=== PATIENT | female | born 1980 ===

== ENCOUNTER 2016-11-18 01:10 | Emergency (ER) | payer MEDICAID ==
[2016-11-18 01:25] VITALS: RESP 20; TEMP 98.1
--- NOTE | 2016-11-18 02:06 | C.PDOC ---
History Of Present Illness 36 year old female presents to the ED with complaints of dental pain x2 days. Patient states she had root canal done two days ago and was given ibuprofen that was providing relief but has run out. She notes she is currently taking antibiotics and was going to return to the dental office yesterday but did not therefore prompting visit to ED. (+) h/o poor dentition. Patient denies any fever, facial swelling, SOB, jow pain, chest pain or difficulty swallowing. Time Seen by Provider: 11/18/16 01:28 Chief Complaint (Nursing): Dental Pain History Per: Patient History/Exam Limitations: no limitations Onset/Duration Of Symptoms: Days (since yesterday) Current Symptoms Are (Timing): Still Present Quality: Positive for: "Pain" Recent travel outside of the [place]: No Past Medical History Reviewed: Historical Data, Nursing Documentation, Vital Signs Vital Signs: Last Vital Signs Temp 98.1 F 11/18/16 01:18 Pulse 92 H 11/18/16 02:15 Resp 20 11/18/16 02:15 BP 118/68 11/18/16 02:15 Pulse Ox 97 11/18/16 03:47 - Medical History PMH: Anxiety, Arthritis, Asthma, Bipolar Disorder, Depression, HTN, Schizophrenia Surgical History: Back Surgery, Cholecystectomy Family History: States: Unknown Family Hx - Social History Hx Alcohol Use: No Hx Substance Use: No - Immunization History Hx Tetanus Toxoid Vaccination: No Hx Influenza Vaccination: No Hx Pneumococcal Vaccination: No Review Of Systems Constitutional: Negative for: Fever, Chills Eyes: Negative for: Vision Change ENT: Positive for: Other (dental pain). Negative for: Mouth Swelling, Throat Swelling Cardiovascular: Negative for: Chest Pain, Palpitations Respiratory: Negative for: Cough, Shortness of Breath Gastrointestinal: Negative for: Vomiting Neurological: Negative for: Headache, Dizziness Physical Exam - Physical Exam Appears: Non-toxic, No Acute Distress Skin: Warm, Dry Head: Atraumatic, Normacephalic Eye(s): bilateral: Normal Inspection, PERRL, EOMI Nose: Normal Oral Mucosa: Moist Tongue: Normal Appearing, No Swelling Lips: Normal Appearing, No Swelling Teeth: Caries (of the right maxillary molar ), Tender To Palpation (of the right maxillary molar ), Other (poor dentition with removable partial denture) Gingiva: Normal Appearing, No Swelling, No Tender Throat: Normal, No Erythema, No Exudate Neck: Normal ROM, Supple Chest: Symmetrical, No Deformity Cardiovascular: Rhythm Regular Respiratory: Normal Breath Sounds, No Rales, No Rhonchi, No Wheezing Neurological/Psych: Oriented x3, Normal Speech ED Course And Treatment O2 Sat by Pulse Oximetry: 97 (room air ) Progress Note: Toradol ordered. On re-evaluation, Patient is resting comfortably, and is in no acute distress. Swallowign without difficulty. Patient was instructed to follow up with dentist in 1-2 days. Disposition - Disposition Disposition: HOME/ ROUTINE Disposition Time: 02:05 Condition: STABLE Additional Instructions: follow up with dentist in 1-2 days. Return to ER if symptoms persist or worsen. Prescriptions: Ibuprofen [Motrin Tab] 800 mg PO TID PRN #20 tab PRN Reason: Pain, Mild (1-3) Instructions: Toothache (ED) - Clinical Impression Clinical Impression: Toothache - Scribe Statement The provider has reviewed the documentation as recorded by the Scribpb [place] All medical record entries made by the Keenanibpb were at my direction and personally dictated by me. I have reviewed the chart and agree that the record accurately reflects my personal performance of the history, physical exam, medical decision making, and the department course for this patient. I have also personally directed, reviewed, and agree with the discharge instructions and disposition.
[2016-11-18 02:35] VITALS: BP 118/68; PULSE 92
[2016-11-18 03:39] VITALS: O2SAT 97
== END 2016-11-18 02:15 | disposition home or self-care (01) ==
LOC: C.ER 01:10
DX: K08.89 Other specified disorders of teeth and supporting structures (principal)
CPT/HCPCS: 96372; 99283; J1885

== ENCOUNTER 2016-11-19 18:03 | Emergency (ER) | payer MEDICAID | END 2016-11-19 20:10 | disposition home or self-care (01) | LOC: C.ER 18:03 | DX: K02.9 Dental caries, unspecified (principal) | CPT/HCPCS: 96372; 99283; J1885 ==

== ENCOUNTER 2016-11-21 03:50 | Emergency (ER) | payer MEDICAID ==
[2016-11-21 04:18] VITALS: BP 121/85; PULSE 85; RESP 18; TEMP 98; O2SAT 97
--- NOTE | 2016-11-21 06:34 | C.PDOC ---
History Of Present Illness Pt with chronic h/o of herniated disc, previously on pain management in [place] presents to ER with c/o of exacerbation of her chronic back pain. Pt is requesting pain meds. Pt denies recent injury, extremity weakness, numbness, incontinence. Pt has scheduled appointment today for pain management Time Seen by Provider: 11/21/16 05:44 Chief Complaint (Nursing): Back Pain History Per: Patient History/Exam Limitations: no limitations Current Symptoms Are (Timing): Still Present Quality Of Discomfort: Aching Severity: Moderate Pain Scale Rating Of: 7 Previous Symptoms: Chronic Pain Associated Symptoms: None. denies: Incontinence, New Weakness, New Numbness Exacerbating Factor(s): Turning, Movement Recent travel outside of the [place]: No Past Medical History Vital Signs: Last Vital Signs Temp 98 F 11/21/16 04:13 Pulse 85 11/21/16 04:13 Resp 18 11/21/16 04:13 BP 121/85 11/21/16 04:13 Pulse Ox 97 11/21/16 06:37 - Medical History PMH: Anxiety, Arthritis, Asthma, Back Problems, Bipolar Disorder, Depression, HTN, Schizophrenia Surgical History: Back Surgery, Cholecystectomy Family History: States: Unknown Family Hx - Social History Hx Alcohol Use: No Hx Substance Use: No - Immunization History Hx Tetanus Toxoid Vaccination: No Hx Influenza Vaccination: No Hx Pneumococcal Vaccination: No Review Of Systems Constitutional: Negative for: Fever, Chills Gastrointestinal: Negative for: Abdominal Pain Genitourinary: Negative for: Dysuria, Incontinence, Hematuria Musculoskeletal: Positive for: Back Pain Neurological: Negative for: Weakness, Numbness Physical Exam - Physical Exam Appears: Well, Non-toxic Skin: Normal Color Head: Atraumatic Eye(s): bilateral: Normal Inspection, PERRL, EOMI Oral Mucosa: Moist Neck: Normal, No Midline Cervical Tenderness, No Paracervical Tenderness Chest: Symmetrical, No Tenderness Cardiovascular: Rhythm Regular Respiratory: Normal Breath Sounds Gastrointestinal/Abdominal: Normal Exam, Soft, No Tenderness Back: Normal Inspection, Vertebral Tenderness (lumbar), Paraspinal Tenderness ( lumbar), No Straight Leg Raising Extremity: Normal ROM Pulses: Left Dorsalis Pedis: Normal, Right Dorsalis Pedis: Normal Neurological/Psych: Oriented x3, Normal Motor, Normal Sensation Gait: Steady ED Course And Treatment O2 Sat by Pulse Oximetry: 97 Pulse Ox Interpretation: Normal Progress Note: Toradol IM and flexeril PO given. Pt has a scheduled appt at 1 pm with PCP or pain management and was instucted and advised to keep. Pt understands all return precautions Disposition - Disposition Referrals: Non [facility] Provider, [Primary Care Provider] - Disposition: HOME/ ROUTINE Disposition Time: 06:35 Condition: STABLE Additional Instructions: Please follow up with PMD / Sigue en clinica Regresa si peor Prescriptions: Cyclobenzaprine [Cyclobenzaprine HCl] 10 mg PO HS #7 tab Naproxen [Naprosyn] 1 tab PO BID PRN #14 tab PRN Reason: Pain Instructions: Chronic Back Pain (ED) Print Language: ECUADOREAN - Clinical Impression Clinical Impression: Chronic back pain
== END 2016-11-21 07:00 | disposition home or self-care (01) ==
LOC: SUPCPDRO 03:50 → C.ER 03:50
DX: G89.29 Other chronic pain (principal); M54.9 Dorsalgia, unspecified
CPT/HCPCS: 96372; 99283; J1885

== ENCOUNTER 2016-12-11 08:46 | Emergency (ER) | payer MEDICAID ==
[2016-12-11 08:56] VITALS: TEMP 98.8
--- NOTE | 2016-12-11 09:07 | C.PDOC ---
History Of Present Illness 36-year-old female, PMHx includes Anxiety, Arthritis, Asthma, Back Problems, Bipolar Disorder, Depression, Hypertension and Schizophrenia, presents to the emergency department with complaints of shoulder pain. Three days ago, patient had an episode of mid-sternal chest pain, that radiated to left shoulder. States chest pain resolved, but shoulder pain continues, and is constant. Pain is worse with movement. Patient notes limited relief with Motrin 800mg. Patient denies trauma, heavy lifting, palpitations, numbness/weakness, shortness of breath, palpitations or any other associated symptoms. Patients secondary complaint is anxiety, states she ran out of her medication (Xanax 2mg TID). No other complaints at this time. Time Seen by Provider: 12/11/16 09:04 Chief Complaint (Nursing): Chest Pain History Per: Patient History/Exam Limitations: no limitations Onset/Duration Of Symptoms: Days (3) Current Symptoms Are (Timing): Still Present Severity: Moderate Past Medical History Reviewed: Historical Data, Nursing Documentation, Vital Signs Vital Signs: Last Vital Signs Temp 98.8 F 12/11/16 08:50 Pulse 96 H 12/11/16 10:15 Resp 15 12/11/16 10:15 BP 142/93 H 12/11/16 10:15 Pulse Ox 100 12/11/16 10:15 - Medical History PMH: Anxiety, Arthritis, Asthma, Back Problems, Bipolar Disorder, Depression, HTN, Schizophrenia Surgical History: Back Surgery, Cholecystectomy Family History: States: No Known Family Hx - Social History Hx Alcohol Use: No Hx Substance Use: No - Immunization History Hx Tetanus Toxoid Vaccination: No Hx Influenza Vaccination: No Hx Pneumococcal Vaccination: No Review Of Systems Except As Marked, All Systems Reviewed And Found Negative. Constitutional: Negative for: Fever, Weakness Cardiovascular: Positive for: Chest Pain (Now resolved). Negative for: Palpitations Respiratory: Negative for: Shortness of Breath Gastrointestinal: Negative for: Nausea, Vomiting Musculoskeletal: Positive for: Shoulder Pain (Left) Neurological: Negative for: Weakness, Numbness, Headache, Dizziness Psych: Positive for: Anxiety Physical Exam - Physical Exam Appears: Non-toxic, No Acute Distress Skin: Warm, Dry, No Rash Head: Atraumatic, Normacephalic Eye(s): bilateral: Normal Inspection, PERRL Nose: Normal Oral Mucosa: Moist Lips: Normal Appearing Neck: Normal ROM Cardiovascular: Rhythm Regular, No Murmur Respiratory: Normal Breath Sounds, No Accessory Muscle Use Extremity: Tenderness, Capillary Refill (<2 seconds), No Deformity, No Swelling , Other (Left shoulder: pain reproducible with ADduction and flexion) Pulses: Left Radial: Normal, Right Radial: Normal Neurological/Psych: Oriented x3, Normal Speech (No focal deficit) ED Course And Treatment - Laboratory Results Result Diagrams: 12/11/16 09:56 12/11/16 09:56 ECG: Interpreted By Me ECG Rhythm: Sinus Rhythm ECG Interpretation: Normal Rate From EC O2 Sat by Pulse Oximetry: 97 Pulse Ox Interpretation: Normal - Radiology CXR: Interpreted by Me CXR Interpretation: Yes: No Acute Disease Progress - Re-Evaluation Re-evaluation Note: 12/11/16 10:57 FEELS BETTER. - Data Reviewed Data Reviewed: Lab, Diagnostic imaging, EKG, Old records Disposition Counseled Patient/Family Regarding: Studies Performed, Diagnosis, Need For Followup, Rx Given - Disposition Referrals: [facility] [Outside] [facility] [Outside] Disposition: HOME/ ROUTINE Disposition Time: 10:57 Condition: IMPROVED Prescriptions: Cyclobenzaprine [Flexeril] 10 mg PO TID #15 tab Ketorolac Tromethamine [Toradol] 10 mg PO QID #12 tab Lidocaine 5% [Lidoderm] 1 ea TD PRN PRN #10 patch PRN Reason: Pain, Moderate (4-7) Instructions: Shoulder Pain (ED) Print Language: JAPANESE - Clinical Impression Clinical Impression: Shoulder pain, Chest pain, Anxiety - Scribe Statement The provider has reviewed the documentation as recorded by the Scribe (Sri Burgos) All medical record entries made by the Scribe were at my direction and personally dictated by me. I have reviewed the chart and agree that the record accurately reflects my personal performance of the history, physical exam, medical decision making, and the department course for this patient. I have also personally directed, reviewed, and agree with the discharge instructions and disposition.
[2016-12-11] MEDS ORDERED: Lidocaine 5% Patch TD STA (09:28)
[2016-12-11] MEDS ORDERED: Lidocaine 5% Patch TD ONE (09:35)
[2016-12-11 09:54] LABS: SQUAMOUS EPITHIAL 9 /hpf (0-5); URINE BACTERIA RARE (<OCC); URINE BILIRUBIN NEGATIVE (NEGATIVE); URINE BLOOD 2+ (NEGATIVE); URINE CLARITY Hazy (Clear); URINE COLOR Yellow (YELLOW); URINE GLUCOSE (UA) NORMAL (Normal); URINE LEUKOCYTE ESTERASE NEG Leu/uL (Negative); URINE NITRATE NEGATIVE (NEGATIVE); URINE PROTEIN NEGATIVE (NEGATIVE); URINE UROBILINOGEN NORMAL mg/dL (0.2-1.0)
[2016-12-11 09:55] LABS: HCG,QUALITATIVE URINE NEGATIVE (NEGATIVE)
[2016-12-11 10:00] LABS: BASO % 0.7 % (0.0-2.0); EOS # 0.1 K/uL (0.0-0.7); HEMOGLOBIN 11.7 g/dL (11.0-16.0); LYMPH # 1.9 K/uL (1.0-4.3); LYMPH % 27.2 % (20.0-40.0); MEAN CELL VOLUME 75.5 fL (81.0-99.0); MEAN CORPUSCULAR HGB CONC 31.9 g/dL (33.0-37.0); MEAN PLATELET VOLUME 7.9 fL (7.2-11.7); MONO # 0.6 K/uL (0.0-0.8); MONO % 7.8 % (0.0-10.0); NEUT # 4.4 K/uL (1.8-7.0); NEUT % 62.3 % (50.0-75.0); NRBC % 0.1 % (0.0-2.0); RBC 4.86 Mil/uL (3.80-5.20); RED CELL DISTRIBUTION WIDTH 15.8 % (11.5-14.5); WHITE BLOOD COUNT 7.1 K/uL (4.8-10.8)
[2016-12-11 10:10] LABS: GFR AFRICAN-AMERICAN > 60; GFR NON-AFRICAN AMERICAN > 60
[2016-12-11 10:11] LABS: BLOOD UREA NITROGEN 10 mg/dL (7-17)
--- NOTE | 2016-12-11 10:30 | RAD ---
HISTORY: chest pain COMPARISON: No prior. TECHNIQUE: Chest PA and lateral FINDINGS: LUNGS: Poor inspiration with low lung volumes, minor crowded bronchovascular markings and mild bibasilar atelectasis PLEURA: No significant pleural effusion identified. No pneumothorax apparent. CARDIOVASCULAR: Normal. OSSEOUS STRUCTURES: No significant abnormalities. VISUALIZED UPPER ABDOMEN: Normal. OTHER FINDINGS: None. IMPRESSION: Poor inspiration with low lung volumes, minor crowded bronchovascular markings and mild bibasilar atelectasis
[2016-12-11 11:12] VITALS: BP 122/69; PULSE 72; RESP 18; O2SAT 99
== END 2016-12-11 11:21 | disposition home or self-care (01) ==
LOC: C.ER 08:46
DX: M25.512 Pain in left shoulder (principal); F41.9 Anxiety disorder, unspecified; R07.89 Other chest pain
CPT/HCPCS: 71020; 80048; 81001; 84484; 84703; 85025; 96374; 99285; J1885

== ENCOUNTER 2016-12-14 10:18 | Emergency (ER) | payer MEDICAID ==
--- NOTE | 2016-12-14 12:26 | C.PDOC ---
History Of Present Illness 36 year old female with a Hx of arthritis, 3 herniated discs, HTN, bipolar disorder, and schizophrenia who presents to the ER with a complaint back pain. Patient was seen last Monday for a compliant of left shoulder pain; patient was given Rx which she has not been able to fill. Patient was previously seen by LOREE , with whom she had a disagreement with, and requested and doctor instead. Denies recent trauma, recent travel, weakness, or numbness. Time Seen by Provider: 12/14/16 10:49 Chief Complaint (Nursing): Abdominal Pain History Per: Patient History/Exam Limitations: no limitations Onset/Duration Of Symptoms: Days Current Symptoms Are (Timing): Still Present Quality Of Discomfort: Unable To Describe Associated Symptoms: None Exacerbating Factor(s): Movement Recent travel outside of the [place]: No Past Medical History Reviewed: Historical Data, Nursing Documentation, Vital Signs Vital Signs: Last Vital Signs Temp 98.1 F 12/14/16 10:25 Pulse 90 12/14/16 10:25 Resp 18 12/14/16 10:25 BP 112/76 12/14/16 10:25 Pulse Ox 100 12/14/16 13:06 - Medical History PMH: Anxiety, Arthritis, Asthma, Back Problems, Bipolar Disorder, Depression, HTN, Schizophrenia Surgical History: Back Surgery, Cholecystectomy Family History: States: Unknown Family Hx - Social History Hx Alcohol Use: No Hx Substance Use: No - Immunization History Hx Tetanus Toxoid Vaccination: No Hx Influenza Vaccination: No Hx Pneumococcal Vaccination: No Review Of Systems Musculoskeletal: Positive for: Back Pain Neurological: Negative for: Weakness, Numbness Physical Exam - Physical Exam Appears: Non-toxic, Other (Anxious) Skin: Normal Color, Warm, Dry Head: Atraumatic, Normacephalic Oral Mucosa: Moist Gastrointestinal/Abdominal: Soft, No Tenderness, Other (Morbidly obese) Extremity: Normal ROM (x4), No Pedal Edema Neurological/Psych: Oriented x3, Normal Speech, Normal Cognition ED Course And Treatment O2 Sat by Pulse Oximetry: 100 (Room air) Pulse Ox Interpretation: Normal Progress Note: Toradol administered. Lidoderm applied. Medical Decision Making Medical Decision Making: Patient states the pain is better, now c/o abdominal pain. Patient generally dissatisfied. Asking to be discharged with pain medication. Disposition - Disposition Referrals: [facility] at [facility] [Outside] Disposition: HOME/ ROUTINE Disposition Time: 13:29 Condition: STABLE Prescriptions: Cyclobenzaprine [Cyclobenzaprine HCl] 10 mg PO BID #4 tab Instructions: Back Pain (ED) Forms: Gen Discharge Inst [place] Islander - POA Present On Arrival: None - Clinical Impression Clinical Impression: Chronic back pain - Scribe Statement The provider has reviewed the documentation as recorded by the Scribpb [place] All medical record entries made by the Keenanibe were at my direction and personally dictated by me. I have reviewed the chart and agree that the record accurately reflects my personal performance of the history, physical exam, medical decision making, and the department course for this patient. I have also personally directed, reviewed, and agree with the discharge instructions and disposition.
[2016-12-14] MEDS ORDERED: Lidocaine 5% Patch TD STA (12:36)
[2016-12-14] MEDS ORDERED: Lidocaine 5% Patch TD ONE (12:42)
[2016-12-14 13:44] VITALS: BP 127/86; PULSE 81; RESP 17; TEMP 98.3; O2SAT 99
== END 2016-12-14 13:44 | disposition home or self-care (01) ==
LOC: C.ER 10:18
DX: G89.29 Other chronic pain (principal); M54.9 Dorsalgia, unspecified
CPT/HCPCS: 96372; 99285; J1885

== ENCOUNTER 2017-06-10 15:51 | Emergency (ER) | payer MEDICAID ==
[2017-06-10 16:16] VITALS: RESP 20
[2017-06-10] MEDS ORDERED: Sodium Chloride 0.9% 1,000 ML IV ONE (16:39)
--- NOTE | 2017-06-10 16:45 | C.PDOC ---
History Of Present Illness 36F c/o generalized bodyaches, abdominal pain, headache, nausea, and 6 episodes of diarrhea that began 2 days ago. Denies fever or vomiting. Hx back surgery 10 years ago. No recent travel or use of antibiotics. 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) History/Exam Limitations: no limitations Onset/Duration Of Symptoms: Days (2) Current Symptoms Are (Timing): Still Present Recent travel outside of the [place] States: No Past Medical History Reviewed: Historical Data, Nursing Documentation, Vital Signs Vital Signs: Last Vital Signs Temp 98.6 F 06/10/17 16:11 Pulse 86 06/10/17 16:11 Resp 20 06/10/17 16:11 BP 137/75 06/10/17 16:11 Pulse Ox 100 06/10/17 16:55 - Medical History PMH: Anxiety, Arthritis, Asthma, Back Problems, Bipolar Disorder, Depression, HTN, Schizophrenia Surgical History: Back Surgery, Cholecystectomy Family History: States: Unknown Family Hx - Social History Hx Alcohol Use: No Hx Substance Use: No - Immunization History Hx Tetanus Toxoid Vaccination: No Hx Influenza Vaccination: No Hx Pneumococcal Vaccination: No Review Of Systems Constitutional: Negative for: Fever Cardiovascular: Negative for: Chest Pain, Palpitations Respiratory: Negative for: Cough, Shortness of Breath Gastrointestinal: Positive for: Nausea, Abdominal Pain, Diarrhea (6 episodes). Negative for: Vomiting Genitourinary: Negative for: Dysuria Musculoskeletal: Positive for: Other (bodyaches) Neurological: Negative for: Weakness, Numbness Physical Exam - Physical Exam Appears: Well, Non-toxic, No Acute Distress Skin: Warm, Dry Head: Atraumatic, Normacephalic Eye(s): bilateral: Normal Inspection Oral Mucosa: Moist Neck: Supple Chest: Symmetrical, No Tenderness Cardiovascular: Rhythm Regular Respiratory: No Decreased Breath Sounds, No Accessory Muscle Use, No Rales, No Rhonchi, No Wheezing Gastrointestinal/Abdominal: Soft, Tenderness (Diffuse), No Guarding, No Rebound Neurological/Psych: Oriented x3, Normal Speech, Normal Cognition, Other (No focal deficits) ED Course And Treatment - Laboratory Results Result Diagrams: 06/10/17 16:54 06/10/17 16:54 O2 Sat by Pulse Oximetry: 100 (RA) Pulse Ox Interpretation: Normal Medical Decision Making Medical Decision Making: Administered Toradol, Zofran and IV fluids. Ordered BG, EKG and blood work. EKG Results: Normal sinus rhythm at 88bpm. Normal axis. Normal intervals. No acute ischema. Disposition - Disposition Disposition: HOME/ ROUTINE Disposition Time: 19:58 Condition: STABLE Forms: [employer] (Djiboutian) - Clinical Impression Clinical Impression: Gastroenteritis - Scribe Statement The provider has reviewed the documentation as recorded by the Keenanibpb [place] All medical record entries made by the Keenanibpb were at my direction and personally dictated by me. I have reviewed the chart and agree that the record accurately reflects my personal performance of the history, physical exam, medical decision making, and the department course for this patient. I have also personally directed, reviewed, and agree with the discharge instructions and disposition.
[2017-06-10 17:03] LABS: BASO % 0.7 % (0.0-2.0); EOS # 0.1 K/uL (0.0-0.7); EOS % 2.3 % (0.0-4.0); HEMOGLOBIN 10.2 g/dL (11.0-16.0); LYMPH % 30.6 % (20.0-40.0); MEAN CORPUSCULAR HEMOGLOBIN 22.7 pg (27.0-31.0); MEAN CORPUSCULAR HGB CONC 31.8 g/dL (33.0-37.0); MEAN PLATELET VOLUME 7.9 fL (7.2-11.7); MONO # 0.4 K/uL (0.0-0.8); MONO % 6.5 % (0.0-10.0); NEUT # 3.9 K/uL (1.8-7.0); NEUT % 59.9 % (50.0-75.0); NRBC % 0.1 % (0.0-2.0); RBC 4.49 Mil/uL (3.80-5.20); RED CELL DISTRIBUTION WIDTH 17.5 % (11.5-14.5); WHITE BLOOD COUNT 6.5 K/uL (4.8-10.8)
[2017-06-10] MEDS ORDERED: Sodium Chloride 0.9% 1,000 ML ONE (17:04)
[2017-06-10 17:07] LABS: VENOUS BLOOD GAS PCO2 45 mmHg (40-60); VENOUS BLOOD GAS PO2 28 mm/Hg (30-55); VENOUS BLOOD PH 7.38 (7.32-7.43)
[2017-06-10 17:11] LABS: MEAN CELL VOLUME 71.6 fL (81.0-99.0)
[2017-06-10 17:21] LABS: ALB/GLOB RATIO 1.3 (1.0-2.1); ALBUMIN 3.7 g/dL (3.5-5.0); ALT/SGPT 21 U/L (9-52); AST/SGOT 22 U/L (14-36); BLOOD UREA NITROGEN 12 mg/dL (7-17); CALCIUM 8.4 mg/dl (8.6-10.4); GFR AFRICAN-AMERICAN > 60; GFR NON-AFRICAN AMERICAN > 60; LIPASE 44 U/L (23-300)
[2017-06-10] MEDS ORDERED: Iodixanol 320 MG/ML 100 ML BOTTLE IV ONE (18:01)
[2017-06-10] MEDS ORDERED: Silver Sulfadiazine 1% Cream (20 gm) TOP STA (19:24)
[2017-06-10] MEDS ORDERED: Silver Sulfadiazine 1% Cream (20 gm) ONE (19:30)
--- NOTE | 2017-06-10 19:57 | CT ---
EXAM: CT Abdomen and Pelvis With Intravenous Contrast EXAM DATE/TIME: 06/10/2017 5:24 PM CLINICAL HISTORY: 36 years old, female; Pain; Abdominal pain; Generalized; Additional info: Abdominal pain S/P gastric bypass TECHNIQUE: Axial computed tomography images of the abdomen and pelvis with intravenous contrast. All CT scans at this facility use one or more dose reduction techniques, viz.: automated exposure control; ma/kV adjustment per patient size (including targeted exams where dose is matched to indication; i.e. head); or iterative reconstruction technique. Coronal and sagittal reformatted images were created and reviewed. CONTRAST: 100 mL of [id number] administered intravenously. COMPARISON: No relevant prior studies available. FINDINGS: LIMITATIONS: Artifact related to the patient's body habitus. Mild streak/motion artifact. LOWER THORAX: No infiltrate seen in the lung bases. ABDOMEN: LIVER: No acute abnormality of the liver identified. GALLBLADDER AND BILE DUCTS: Cholecystectomy clips. Mild biliary ductal dilatation, most likely related to the post cholecystectomy state. No radiopaque common bile duct stones are visualized. Recommend correlation with LFTs as clinically indicated. PANCREAS: No CT evidence of acute pancreatitis. SPLEEN: No acute abnormality of the spleen identified. ADRENALS: No acute abnormality of the adrenal glands identified. KIDNEYS AND URETERS: No acute abnormality of the kidneys identified. No evidence of significant hydrouereteronephrosis. STOMACH AND BOWEL: Postsurgical changes involving the stomach and left abdomen, compatible with previous gastric bypass surgery. Focally dilated small bowel loop is seen in the left abdomen, at the jejunojejunal anastomosis. This most likely represents chronic postsurgical dilatation. Remainder of the small bowel does not appear significantly dilated to suggest a small bowel obstruction. Otherwise, no significant abnormality of the bowel is identified. No acute abnormality of the gastric pouch or excluded portion of the stomach identified. No acute abnormality of the colon identified. APPENDIX: Appendix is seen, and is within normal limits in appearance. PELVIS: BLADDER: No acute abnormality of the bladder identified. REPRODUCTIVE: Uterus is surgically absent. 5 x 4 cm oval shaped masslike density is seen in the right anterior pelvis, felt to represent the right ovary. This contains a 3.6 cm low-density cystic lesion, which has a benign appearance by CT, having a CT attenuation compatible with simple fluid. Followup pelvic ultrasound as indicated clinically. Left ovary is not seen. ABDOMEN and PELVIS: INTRAPERITONEAL SPACE: No evidence of free intraperitoneal air or fluid. BONES/JOINTS: No acute fractures or other acute bony abnormality noted. SOFT TISSUES: Multiple ventral hernias, in the anterior abdominal wall, all of which contain fat only. No evidence of bowel herniation. Post operative scarring involving the anterior pelvic wall. VASCULATURE: No evidence of abdominal aortic aneurysm. No evidence of periaortic hemorrhage. LYMPH NODES: No evidence of diffuse lymphadenopathy. OTHER FINDINGS: IMPRESSION: - No evidence of significant acute process. - 3.4 cm right ovarian/adnexal cystic lesion. See above. - Mild biliary ductal dilatation, most likely related to the post cholecystectomy state. - Evidence of prior gastric bypass surgery - See above for remaining findings.
[2017-06-10 20:06] VITALS: BP 141/82; PULSE 78; TEMP 98.2; O2SAT 98
--- NOTE | 2017-06-12 23:33 | CARD ---
APPROVED REPORT EKG Measurement Heart [id number] <Conclusion> Normal sinus rhythm Normal ECG
== END 2017-06-10 20:07 | disposition home or self-care (01) ==
LOC: C.ER 15:51
DX: K52.9 Noninfective gastroenteritis and colitis, unspecified (principal); I10 Essential (primary) hypertension
CPT/HCPCS: 74177; 80053; 82803; 83690; 85025; 87804; 93005; 96361; 96372; 96374; 96375; 99284; J1885; J2405; J7040; Q9967

== ENCOUNTER 2017-06-21 07:36 | Day surgery (SDC) | payer MEDICAID ==
[~2017-06-21 07:36] MED LIST: Iodixanol 320 MG/ML 100 ML BOTTLE IV ONE
[2017-06-21 08:05] VITALS: BMI 43.5
[2017-06-21 08:46] VITALS: O2SAT 100
[2017-06-21] MEDS ORDERED: Propofol 10 mg/ml Inj (20 ML) ONE (09:42)
[2017-06-21] MEDS ORDERED: Lactated Ringer's 500 ML IV SCH (09:45)
--- NOTE | 2017-06-21 09:51 | CP.SDSHP ---
Same Day Surgery H & P - History Proposed Procedure: EGD with biopsy Pre-Op Diagnosis: abdominal pain - Previous Medical/Surgical History Cardiac: Hypertension Comments: Schizophrenia Previous Surgical History: Gastric Bypass. LINO/BSO. c section x 2. Cholecystectomy - Allergies Allergies: Allergies morphine Allergy (Intermediate, Verified 12/11/16 08:49) codeine Adverse Reaction (Verified 06/10/17 16:17) SEAFOOD Adverse Reaction (Uncoded 06/10/17 16:39) - Current Medications Current Medications: per rn. reviewed - Physical Exam General Appearance: wdwn Vital Signs: Vital Signs 06/21/17 08:37 Temperature 97 F L Pulse Rate 80 Respiratory 20 Rate Blood Pressure 112/66 O2 Sat by Pulse 100 Oximetry Mental Status: Alert & Oriented x3 Heart: WNL Lungs: WNL GI: WNL - {Optional Preform as Required} Abdomen: WNL - Impression Impression: Abdominal pain Pt. Evaluated Today:Candidate for Anesthesia & Procedure: Yes - Date & Time Date: 06/21/17 Time: 09:40 Short Stay Discharge - Short Stay Discharge Admitting Diagnosis/Reason for Visit: FUNCTIONAL DYSPEPSIA Disposition: HOME/ ROUTINE
[2017-06-21 13:44] VITALS: BP 142/83; PULSE 72; RESP 12; TEMP 98.5
== END 2017-06-21 13:05 | disposition home or self-care (01) ==
LOC: C.ENDO 07:36
PROVIDERS: ATTEND Internal Medicine Gastroenterology
DX: K30 Functional dyspepsia (principal); Z98.84 Bariatric surgery status; R10.13 Epigastric pain; I10 Essential (primary) hypertension; E66.01 Morbid (severe) obesity due to excess calories; F32.9 Major depressive disorder, single episode, unspecified
CPT/HCPCS: 43235; 84703; J2704; J7120

== ENCOUNTER 2017-11-05 17:21 | Inpatient (IN) | payer MEDICAID ==
[2017-11-05 17:28] VITALS: BMI 41.4
[2017-11-05] MEDS ORDERED: Sodium Chloride 0.9% 1,000 ML IV ONE (17:39)
--- NOTE | 2017-11-05 17:40 | C.PDOC ---
History Of Present Illness Patient presents to ED for evaluation after taking 20 tabs of Xanax 1mg approx 30 min [employer]ATION [employer]. She admits to history of schizophrenia and depression, and states she took the pills in a suicide attempt. She admits to 1 prior attempt in [place], also a Xanax overdose. She currently feels a little drowsy, but denies other physical complaints. PMhx of schizophrenia, gastric bypass, HTN, depression, arthritis. 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) Suicide/Self Injury Attempted (Context): Ingestion Severity: Moderate Associated Symptoms: Depression, Suicidal Thoughts Past Medical History Reviewed: Historical Data, Nursing Documentation, Vital Signs Vital Signs: Last Vital Signs Temp 97.6 F 11/09/17 06:29 Pulse 87 11/09/17 06:29 Resp 18 11/09/17 06:29 BP 97/67 L 11/09/17 06:29 Pulse Ox 99 11/07/17 15:00 - Medical History PMH: Anxiety, Arthritis, Back Problems, Bipolar Disorder, Depression, HTN, Schizophrenia Surgical History: Back Surgery, [place] [facility] GROUP PSYCHOTHERAPY (11/05/17) INDIVIDUAL PSYCHOTHERAPY, SUPPORTIVE (11/05/17) MEDICATION MANAGEMENT (11/05/17) gastric bypass Family History: States: No Known Family Hx - Social History Hx Alcohol Use: No Hx Substance Use: No - Immunization History Hx Tetanus Toxoid Vaccination: No Hx Influenza Vaccination: No Hx Pneumococcal Vaccination: No Review Of Systems Constitutional: Positive for: Other (mild drowsiness ) Cardiovascular: Negative for: Chest Pain, Palpitations Respiratory: Negative for: Shortness of Breath Gastrointestinal: Negative for: Nausea, Vomiting, Abdominal Pain, Diarrhea Psych: Positive for: Anxiety, Depression, Suicidal ideation, Other (auditory hallucinations ) Physical Exam - Physical Exam Appears: Well, Non-toxic, No Acute Distress Head: Atraumatic, Normacephalic Eye(s): bilateral: EOMI, Other (pupils approx 5-6mm and reactive, no nystagmus ) Oral Mucosa: Moist Cardiovascular: Rhythm Regular (tachycardic ) Respiratory: Normal Breath Sounds, No Rales, No Rhonchi, No Wheezing Gastrointestinal/Abdominal: Normal Exam, Bowel Sounds, Soft, No Tenderness Neurological/Psych: Oriented x3 ED Course And Treatment - Laboratory Results Result Diagrams: 11/07/17 07:52 11/07/17 07:52 ECG: Interpreted By Me, Viewed By Me (sinus tachycardia 101 bpm, normal axis, QTc 459ms, Q waves III, aVF, no acute ST/T changes) ECG Interpretation: Abnormal O2 Sat by Pulse Oximetry: 99 (RA) Pulse Ox Interpretation: Normal - Radiology CXR: Interpreted by Me, Viewed By Me CXR Interpretation: Yes: No Acute Disease. No: Infiltrates Progress Note: Blood work, UDS, Upreg, CXR, EKG ordered and reviewed. Patient given IV NS bolus. 6:15pm- Spoke with Jax at [place] poison control - expect [employer]GER [employer] depression with benzo overdose. Recommends usual blood work (including lithium level) + EKG and supportive care. 6:45pm- Spoke with Dr. Conn (it support technician ), patient to have ICU eval after 7pm. - Physician Consult Information Physician Contacted: Omar Ndiaye Outcome Of Conversation: Discussed patient with medicine sales and operations trainee, agrees with admission to his service for benzodiazepine overdose, depression, suicidal ideations. Patient pending ICU eval. Critical Care Time - Critical Care Note Total Time (in mins): 45 Documented critical care: time excludes all time spent performing seperately billable procedures. Disposition - Disposition Disposition: HOSPITALIZED Disposition Time: 18:46 Condition: GUARDED - Clinical Impression Clinical Impression: Tachycardia, Suicide attempt, Depression, Suicidal ideations, Benzodiazepine overdose Decision To Admit - Pt Status Changed To: Hospital Disposition Of: Inpatient - Admit Certification Admit to Inpatient:: After my assessment, the patient will require hospitalization for at least two midnights. This is because of the severity of symptoms shown, intensity of services needed, and/or the medical risk in this patient being treated as an outpatient. - InPatient: Physician Admission Certification: I certify that this patient requires 2 or more midnights of care for the following reason:: see notes - . Bed Request Type: Telemetry Admitting Physician: Omar Ndiaye Patient Diagnosis: Benzodiazepine abuse, Suicidal ideations, Depression, Tachycardia
[2017-11-05 18:25] LABS: BASO # 0.1 K/uL (0.0-0.2); BASO % 0.7 % (0.0-2.0); EOS # 0.1 K/uL (0.0-0.7); EOS % 1.1 % (0.0-4.0); HEMOGLOBIN 11.4 g/dL (11.0-16.0); LYMPH # 2.3 K/uL (1.0-4.3); LYMPH % 22.2 % (20.0-40.0); MEAN CELL VOLUME 72.1 fL (81.0-99.0); MEAN CORPUSCULAR HEMOGLOBIN 22.9 pg (27.0-31.0); MEAN CORPUSCULAR HGB CONC 31.7 g/dL (33.0-37.0); MEAN PLATELET VOLUME 7.7 fL (7.2-11.7); MONO # 0.7 K/uL (0.0-0.8); MONO % 6.6 % (0.0-10.0); NEUT # 7.1 K/uL (1.8-7.0); NEUT % 69.4 % (50.0-75.0); RBC 5.01 Mil/uL (3.80-5.20); RED CELL DISTRIBUTION WIDTH 17.4 % (11.5-14.5); WHITE BLOOD COUNT 10.2 K/uL (4.8-10.8)
[2017-11-05 18:29] LABS: HCG,QUALITATIVE URINE NEGATIVE (NEGATIVE); SQUAMOUS EPITHIAL 6 /hpf (0-5); URINE BACTERIA OCC (<OCC); URINE BILIRUBIN NEGATIVE (NEGATIVE); URINE BLOOD 2+ (NEGATIVE); URINE CLARITY Hazy (Clear); URINE COLOR Yellow (YELLOW); URINE GLUCOSE (UA) NORMAL (Normal); URINE LEUKOCYTE ESTERASE NEG Leu/uL (Negative); URINE PROTEIN NEGATIVE (NEGATIVE); URINE UROBILINOGEN NORMAL mg/dL (0.2-1.0)
[2017-11-05 18:39] LABS: ALB/GLOB RATIO 1.3 (1.0-2.1); ALBUMIN 4.4 g/dL (3.5-5.0); ALT/SGPT 26 U/L (9-52); AST/SGOT 23 U/L (14-36); BLOOD UREA NITROGEN 16 mg/dL (7-17); CALCIUM 9.4 mg/dl (8.6-10.4); GFR AFRICAN-AMERICAN > 60; GFR NON-AFRICAN AMERICAN > 60
[2017-11-05 18:48] LABS: ACETAMINOPHEN < 10.0 ug/mL (10.0-30.0); SALICYLATE < 1.0 mg/dL 1
--- NOTE | 2017-11-05 18:49 | CP.PCM.CON ---
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 Past Patient History - Infectious Disease Hx of Infectious Diseases: None - Past Medical History & Family History Past Medical History?: Yes - Past Social History Smoking Status: Never Smoked - CARDIAC Hx Hypertension: Yes - PULMONARY Hx Asthma: No - NEUROLOGICAL Hx Neurological Disorder: No - HEENT Hx HEENT Problems: No - RENAL Hx Chronic Kidney Disease: No - ENDOCRINE/METABOLIC Hx Endocrine Disorders: No - HEMATOLOGICAL/ONCOLOGICAL Hx Blood Disorders: No - INTEGUMENTARY Hx Dermatological Problems: No - MUSCULOSKELETAL/RHEUMATOLOGICAL Hx Arthritis: Yes - GASTROINTESTINAL Hx Gastrointestinal Disorders: No - GENITOURINARY/GYNECOLOGICAL Hx Genitourinary Disorders: No - PSYCHIATRIC Hx Anxiety: Yes Hx Bipolar Disorder: Yes Hx Depression: Yes Hx Schizophrenia: Yes Hx Substance Use: No - SURGICAL HISTORY Hx Cholecystectomy: Yes - ANESTHESIA Hx Anesthesia: Yes Hx Anesthesia Reactions: No Hx Malignant Hyperthermia: No Meds Allergies/Adverse Reactions: Allergies Allergy/AdvReac Type Severity Reaction Status Date / Time morphine Allergy Intermediate Verified 11/05/17 17:24 iodine Allergy Verified 11/05/17 17:24 codeine AdvReac Verified 11/05/17 17:24 SEAFOOD AdvReac Uncoded 06/10/17 16:39 Results - Vital Signs Recent Vital Signs: Last Vital Signs Temp 98.3 F 11/05/17 17:31 Pulse 116 H 11/05/17 17:31 Resp 20 11/05/17 17:31 BP 125/92 H 11/05/17 17:31 Pulse Ox 99 11/05/17 18:48 - Labs Result Diagrams: 11/05/17 18:20 11/05/17 18:20 Labs: Laboratory Results - last 24 hr 11/05/17 11/05/17 11/05/17 18:20 18:20 18:20 WBC 10.2 D RBC 5.01 Hgb 11.4 Hct 36.1 MCV 72.1 L MCH 22.9 L MCHC 31.7 L RDW 17.4 H Plt Count 424 H MPV 7.7 Neut % (Auto) 69.4 Lymph % (Auto) 22.2 [place] % (Auto) 6.6 Eos % (Auto) 1.1 Baso % (Auto) 0.7 Neut # (Auto) 7.1 H Lymph # (Auto) 2.3 [place] # (Auto) 0.7 Eos # (Auto) 0.1 Baso # (Auto) 0.1 Sodium 141 Potassium 3.9 Chloride 104 Carbon Dioxide 22 Anion Gap 18 BUN 16 Creatinine 0.7 Est GFR ( Amer) > 60 Est GFR (Non-Af Amer) > 60 Random Glucose 90 Calcium 9.4 Total Bilirubin 0.5 AST 23 ALT 26 Alkaline Phosphatase 71 Total Protein 7.6 Albumin 4.4 Globulin 3.3 Albumin/Globulin Ratio 1.3 Urine Color Yellow Urine Clarity Hazy Urine pH 5.0 Ur Specific [place] 1.023 Urine Protein Negative Urine Glucose (UA) Normal Urine Ketones Trace Urine Blood 2+ H Urine Nitrate Negative Urine Bilirubin Negative Urine Urobilinogen Normal Ur Leukocyte Esterase Neg Urine WBC (Auto) 6 H Urine RBC (Auto) 12 H Ur Squamous Epith Cells 6 H Urine Bacteria Occ H Urine HCG, Qual Negative Salicylates Acetaminophen [place] Alcohol, Quantitative < 10 11/05/17 11/05/17 18:20 18:21 WBC RBC Hgb Hct MCV MCH MCHC RDW Plt Count MPV Neut % (Auto) Lymph % (Auto) [place] % (Auto) Eos % (Auto) Baso % (Auto) Neut # (Auto) Lymph # (Auto) [place] # (Auto) Eos # (Auto) Baso # (Auto) Sodium Potassium Chloride Carbon Dioxide Anion Gap BUN Creatinine Est GFR ( Amer) Est GFR (Non-Af Amer) Random Glucose Calcium Total Bilirubin AST ALT Alkaline Phosphatase Total Protein Albumin Globulin Albumin/Globulin Ratio Urine Color Urine Clarity Urine pH Ur Specific [place] Urine Protein Urine Glucose (UA) Urine Ketones Urine Blood Urine Nitrate Urine Bilirubin Urine Urobilinogen Ur Leukocyte Esterase Urine WBC (Auto) Urine RBC (Auto) Ur Squamous Epith Cells Urine Bacteria Urine HCG, Qual Salicylates < 1.0 Acetaminophen < 10.0 L [place] < 0.2 L Alcohol, Quantitative
[2017-11-05 19:18] LABS: BARBITURATES, UR NEGATIVE (NEGATIVE); OPIATES, UR NEGATIVE (NEGATIVE); PHENCYCLIDINE, UR NEGATIVE (NEGATIVE)
[2017-11-05 19:19] LABS: BENZODIAZEPINES, UR POSITIVE (NEGATIVE)
--- NOTE | 2017-11-05 20:34 | CP.PCM.CON ---
History of Present Illness - History of Present Illness History of Present Illness: CCM37 yo female with hx Anxiety /Depressioin /Schizophrenia /HTN /Gastric Bypass / Arthritis to ED after taking 20 pills of Xanax 1 mg in suicide attempt 4 hrs ago. Pt was nauseous earlier but not now and ate food in ED. No pain /sob /fever /cough.Pt admits hearing voiced last 2 weeks. ROS- asnoted All- morphine/ Tylenol with codeine /iodine /seafood Social- no tob/ etoh/drugs Meds- reviewed FH-Unknown PE T- 98 P-102 R-16 BP-109/73 Alert ,responisve, nad Perrl Neck-no jvdlungs- bilat bs Heawrt-rr abD- benign Ext- no edema, nontender NEur- nonfocal Labs, ekg-reviewed A&P Suiced Attempt Xanax OD Schizophrenia Anxiety /Depression HTN Arthritis Hx Gastric Bypass cont monitoring in Telemetry f/u MS maintain optimal lytes cont 1:1 observation Psych eval DVT prophylaxis re-consult prn d/w ED staff critical care time spent with patient 35 min. Past Patient History - Infectious Disease Hx of Infectious Diseases: None - Past Medical History & Family History Past Medical History?: Yes - Past Social History Smoking Status: Never Smoked - CARDIAC Hx Hypertension: Yes - PULMONARY Hx Asthma: No - NEUROLOGICAL Hx Neurological Disorder: No - HEENT Hx HEENT Problems: No - RENAL Hx Chronic Kidney Disease: No - ENDOCRINE/METABOLIC Hx Endocrine Disorders: No - HEMATOLOGICAL/ONCOLOGICAL Hx Blood Disorders: No - INTEGUMENTARY Hx Dermatological Problems: No - MUSCULOSKELETAL/RHEUMATOLOGICAL Hx Arthritis: Yes - GASTROINTESTINAL Hx Gastrointestinal Disorders: No - GENITOURINARY/GYNECOLOGICAL Hx Genitourinary Disorders: No - PSYCHIATRIC Hx Anxiety: Yes Hx Bipolar Disorder: Yes Hx Depression: Yes Hx Schizophrenia: Yes Hx Substance Use: No - SURGICAL HISTORY Hx Cholecystectomy: Yes - ANESTHESIA Hx Anesthesia: Yes Hx Anesthesia Reactions: No Hx Malignant Hyperthermia: No Meds Allergies/Adverse Reactions: Allergies Allergy/AdvReac Type Severity Reaction Status Date / Time morphine Allergy Intermediate Verified 11/05/17 17:24 iodine Allergy Verified 11/05/17 17:24 codeine AdvReac Verified 11/05/17 17:24 SEAFOOD AdvReac Uncoded 06/10/17 16:39 Results - Vital Signs Recent Vital Signs: Last Vital Signs Temp 98 F 11/05/17 20:17 Pulse 90 11/05/17 20:17 Resp 18 11/05/17 20:17 BP 105/44 L 11/05/17 20:17 Pulse Ox 98 11/05/17 20:17 - Labs Result Diagrams: 11/05/17 18:20 11/05/17 18:20 Labs: Laboratory Results - last 24 hr 11/05/17 11/05/17 11/05/17 18:20 18:20 18:20 WBC 10.2 D RBC 5.01 Hgb 11.4 Hct 36.1 MCV 72.1 L MCH 22.9 L MCHC 31.7 L RDW 17.4 H Plt Count 424 H MPV 7.7 Neut % (Auto) 69.4 Lymph % (Auto) 22.2 [place] % (Auto) 6.6 Eos % (Auto) 1.1 Baso % (Auto) 0.7 Neut # (Auto) 7.1 H Lymph # (Auto) 2.3 [place] # (Auto) 0.7 Eos # (Auto) 0.1 Baso # (Auto) 0.1 Sodium 141 Potassium 3.9 Chloride 104 Carbon Dioxide 22 Anion Gap 18 BUN 16 Creatinine 0.7 Est GFR ( Amer) > 60 Est GFR (Non-Af Amer) > 60 Random Glucose 90 Calcium 9.4 Total Bilirubin 0.5 AST 23 ALT 26 Alkaline Phosphatase 71 Total Protein 7.6 Albumin 4.4 Globulin 3.3 Albumin/Globulin Ratio 1.3 Beta HCG, Quant Urine Color Yellow Urine Clarity Hazy Urine pH 5.0 Ur Specific [place] 1.023 Urine Protein Negative Urine Glucose (UA) Normal Urine Ketones Trace Urine Blood 2+ H Urine Nitrate Negative Urine Bilirubin Negative Urine Urobilinogen Normal Ur Leukocyte Esterase Neg Urine WBC (Auto) 6 H Urine RBC (Auto) 12 H Ur Squamous Epith Cells 6 H Urine Bacteria Occ H Urine HCG, Qual Negative Salicylates Urine Opiates Screen Urine Methadone Screen Acetaminophen Ur Barbiturates Screen Ur Phencyclidine Scrn Ur Amphetamines Screen U Benzodiazepines Scrn [place] U Oth Cocaine Metabols U Cannabinoids Screen Alcohol, Quantitative < 10 11/05/17 11/05/17 11/05/17 18:20 18:20 18:21 WBC RBC Hgb Hct MCV MCH MCHC RDW Plt Count MPV Neut % (Auto) Lymph % (Auto) [place] % (Auto) Eos % (Auto) Baso % (Auto) Neut # (Auto) Lymph # (Auto) [place] # (Auto) Eos # (Auto) Baso # (Auto) Sodium Potassium Chloride Carbon Dioxide Anion Gap BUN Creatinine Est GFR ( Amer) Est GFR (Non-Af Amer) Random Glucose Calcium Total Bilirubin AST ALT Alkaline Phosphatase Total Protein Albumin Globulin Albumin/Globulin Ratio Beta HCG, Quant < 2.39 Urine Color Urine Clarity Urine pH Ur Specific [place] Urine Protein Urine Glucose (UA) Urine Ketones Urine Blood Urine Nitrate Urine Bilirubin Urine Urobilinogen Ur Leukocyte Esterase Urine WBC (Auto) Urine RBC (Auto) Ur Squamous Epith Cells Urine Bacteria Urine HCG, Qual Salicylates < 1.0 Urine Opiates Screen Urine Methadone Screen Acetaminophen < 10.0 L Ur Barbiturates Screen Ur Phencyclidine Scrn Ur Amphetamines Screen U Benzodiazepines Scrn [place] < 0.2 L U Oth Cocaine Metabols U Cannabinoids Screen Alcohol, Quantitative 11/05/17 19:00 WBC RBC Hgb Hct MCV MCH MCHC RDW Plt Count MPV Neut % (Auto) Lymph % (Auto) [place] % (Auto) Eos % (Auto) Baso % (Auto) Neut # (Auto) Lymph # (Auto) [place] # (Auto) Eos # (Auto) Baso # (Auto) Sodium Potassium Chloride Carbon Dioxide Anion Gap BUN Creatinine Est GFR ( Amer) Est GFR (Non-Af Amer) Random Glucose Calcium Total Bilirubin AST ALT Alkaline Phosphatase Total Protein Albumin Globulin Albumin/Globulin Ratio Beta HCG, Quant Urine Color Urine Clarity Urine pH Ur Specific [place] Urine Protein Urine Glucose (UA) Urine Ketones Urine Blood Urine Nitrate Urine Bilirubin Urine Urobilinogen Ur Leukocyte Esterase Urine WBC (Auto) Urine RBC (Auto) Ur Squamous Epith Cells Urine Bacteria Urine HCG, Qual Salicylates Urine Opiates Screen Negative Urine Methadone Screen Negative Acetaminophen Ur Barbiturates Screen Negative Ur Phencyclidine Scrn Negative Ur Amphetamines Screen Negative U Benzodiazepines Scrn Positive [place] U Oth Cocaine Metabols Negative U Cannabinoids Screen Negative Alcohol, Quantitative Assessment & Plan (1) Overdose Status: Acute (2) Suicide attempt Status: Acute (3) Schizophrenia Status: Chronic (4) Anxiety Status: Chronic (5) Depression Status: Chronic
[2017-11-06 07:37] LABS: BASO # 0.1 K/uL (0.0-0.2); BASO % 0.8 % (0.0-2.0); EOS # 0.2 K/uL (0.0-0.7); EOS % 2.1 % (0.0-4.0); HEMOGLOBIN 10.8 g/dL (11.0-16.0); LYMPH # 1.7 K/uL (1.0-4.3); LYMPH % 22.7 % (20.0-40.0); MEAN CELL VOLUME 72.3 fL (81.0-99.0); MEAN CORPUSCULAR HEMOGLOBIN 23.6 pg (27.0-31.0); MEAN CORPUSCULAR HGB CONC 32.7 g/dL (33.0-37.0); MONO # 0.6 K/uL (0.0-0.8); NEUT # 4.9 K/uL (1.8-7.0); NEUT % 66.4 % (50.0-75.0); RBC 4.59 Mil/uL (3.80-5.20); RED CELL DISTRIBUTION WIDTH 17.6 % (11.5-14.5); WHITE BLOOD COUNT 7.4 K/uL (4.8-10.8)
[2017-11-06 08:08] LABS: ALB/GLOB RATIO 1.5 (1.0-2.1); ALBUMIN 4.1 g/dL (3.5-5.0); ALT/SGPT 19 U/L (9-52); AST/SGOT 22 U/L (14-36); BLOOD UREA NITROGEN 16 mg/dL (7-17); CALCIUM 8.6 mg/dl (8.6-10.4); GFR AFRICAN-AMERICAN > 60; GFR NON-AFRICAN AMERICAN > 60
--- NOTE | 2017-11-06 09:19 | CP.PCM.PN ---
<DaveTjelayne - Last Filed: 11/06/17 13:59> Subjective - Date & Time of Evaluation Date of Evaluation: 11/06/17 Time of Evaluation: 09:50 - Subjective Subjective: PGY 3 Progress Note- Dr. Andree Ndiaye's service 37 year old female patient with past medical history significant for Bipolar disorder, Anxiety and depression presented to the ER 11/05/17 after a suicide attempt. She states that she has been feeling down for the past couple of days and been thinking of harming herself. She further states that she was having auditory hallucinations telling her to harm herself. She states that she has had to deal with many issues over the past couple of years. She admits to having back pain. She denies chest pain, dyspnea , headaches at this time. PMHx- as states above PSHx- 2 c-sections, tubal ligation, hysterectomy, cholecystectomy, gastric bypass Fam Hx- Both parents have HTN, Dad has DM, Mom, Brother and daughter all have bipolar disorder. Alzhiemer's runs in the family as well. Medications- Xanax- another medication to help go to the bathroom ( unsure of name) Does not use a pharmacy here Social- admits to social alcohol use every now and then, Denies illicit drug and cigarette use Allergies- morphine (anaphylaxis), shellfish (anaphylaxis), tylenol with codeine causes an adverse reaction Objective - Vital Signs/Intake and Output Vital Signs (last 24 hours): Temp Pulse Resp BP Pulse Ox 98.3 F 78 20 116/83 99 11/06/17 07:55 11/06/17 07:55 11/06/17 07:55 11/06/17 07:55 11/06/17 07:55 Intake and Output: 11/06/17 11/06/17 06:59 18:59 Intake Total 720 Balance 720 - Medications Medications: Current Medications Enoxaparin Sodium (Lovenox) 40 mg SC DAILY [facility] Home Med (Hydroxyzine Pamoate [Vistaril]) 50 mg PO DAILY [facility] Home Med ([place] Carbonate [[place] Carbonate]) 1 tab PO TID [facility] Ketorolac Tromethamine (Toradol) 10 mg PO Q6 PRN PRN Reason: Pain, moderate (4-7) Last Admin: 11/06/17 00:53 Dose: 10 mg Lamotrigine (Lamictal) 100 mg PO DAILY [facility] Pantoprazole Sodium (Protonix Ec Tab) 40 mg PO DAILY [facility] Risperidone (Risperdal Tab) 0.5 mg PO BID PRETTY - Labs Labs: 11/06/17 07:28 11/06/17 07:28 - Constitutional Appears: Non-toxic, No Acute Distress - Head Exam Head Exam: ATRAUMATIC, NORMAL INSPECTION - Eye Exam Eye Exam: EOMI Pupil Exam: NORMAL ACCOMODATION - ENT Exam ENT Exam: Mucous Membranes Moist - Neck Exam Neck Exam: Full ROM - Respiratory Exam Respiratory Exam: NORMAL BREATHING PATTERN. absent: Wheezes - Cardiovascular Exam Cardiovascular Exam: +S1, +S2 - GI/Abdominal Exam GI & Abdominal Exam: Soft - Extremities Exam Extremities Exam: Full ROM - Back Exam Back Exam: Full ROM - Neurological Exam Neurological Exam: Alert, Awake, Oriented x3 - Psychiatric Exam Psychiatric exam: Suicidal Ideation - Skin Skin Exam: Dry, Normal Color, Warm Assessment and Plan (1) Benzodiazepine overdose Assessment & Plan: AAOx3, Stable labs and vitals Consult to Psych- F/U recommendations Toxicology screen positive findings (Acetaminophen level and lithium level decreased) Will monitor at least 24 hours before considerations for transfer. Pending stable clinical presentation- will transfer to psych. Patient would benefit from outpatient care management as well. Status: Acute (2) Suicidal ideations Assessment & Plan: Counseled extensively Management per psych Status: Acute (3) Bipolar disorder Assessment & Plan: On Lamictal and Risperdal Status: Chronic (4) Anxiety and depression Assessment & Plan: Management per Psych Status: Chronic (5) Prophylactic measure Assessment & Plan: On Lovenox and Protonix Status: Acute <Omar Ndiaye S - Last Filed: 11/06/17 23:45> Objective - Vital Signs/Intake and Output Vital Signs (last 24 hours): Temp Pulse Resp BP Pulse Ox 98.4 F 80 20 109/70 97 11/06/17 15:00 11/06/17 15:00 11/06/17 15:00 11/06/17 15:00 11/06/17 15:00 Intake and Output: 11/06/17 11/07/17 18:59 06:59 Intake Total 400 Balance 400 - Medications Medications: Current Medications Enoxaparin Sodium (Lovenox) 40 mg SC DAILY [facility] Last Admin: 11/06/17 10:33 Dose: 40 mg Hydroxyzine HCl (Atarax) 50 mg PO DAILY [facility] Ketorolac Tromethamine (Toradol) 10 mg PO Q6 PRN PRN Reason: Pain, moderate (4-7) Last Admin: 11/06/17 17:09 Dose: 10 mg Lamotrigine (Lamictal) 100 mg PO DAILY [facility] [place] Carbonate ([place] Carbonate 300mg) 300 mg PO TID [facility] Last Admin: 11/06/17 21:54 Dose: 300 mg Pantoprazole Sodium (Protonix Ec Tab) 40 mg PO DAILY [facility] Last Admin: 11/06/17 10:33 Dose: 40 mg Risperidone (Risperdal Tab) 1 mg PO BID [facility] Last Admin: 11/06/17 17:08 Dose: Not Given Trazodone HCl (Desyrel) 100 mg PO HS [facility] Last Admin: 11/06/17 21:48 Dose: 100 mg - Labs Labs: 11/06/17 07:28 11/06/17 07:28 Attending/Attestation - Attestation I have personally seen and examined this patient.: Yes I have fully participated in the care of the patient.: Yes I have reviewed all pertinent clinical information, including history, physical exam and plan: Yes Notes (Text): 11/06/17 23:45 case seen and d.w staff and resident, concurred with finding and management..
--- NOTE | 2017-11-06 09:19 | RAD ---
Chest x-ray single frontal view History: Overdose. Comparison: 12/11/2016 Findings: Mild venous congestion. Heart size normal limits. Distended bowel loops seen projecting underneath the left hemidiaphragm. Surgical clips in the right hemiabdomen. Impression: Mild venous congestion.
--- NOTE | 2017-11-06 09:55 | PCM.PSYCH ---
Initial Psychiatric Evaluation - Initial Psychiatric Evaluation Type of Admission: Voluntary Legal Status: Capacity Chief Complaint (in patient's own words): I was feeling suicidal and I OD on xanax.' History of Present Illness and Precipitating Events: Patient is 37 y/o HF, who was escorted to the hospital after a suicidal attempt. Pt remains disorganized, and internally preoccupied throughout the interview. She appeared very delusional and paranoid. She reports a long history of schizoaffective disorder. She has h/o multiple inpt admissions, last discharged almost 6 years ago, when she attempted suicide by OD. She was admitted on the medical floor as she attempted suicide again by OD on pills. Today patient was consulted because of h/o schizoaffective disorder. Patient remained disorganized, paranoid, depressed and delusional throughout the interview. She reports AH telling to killing herself, and VH seeing demons and devils. She also reports depressed mood and feeling of hopelessness and helplessness. Current Medications: Active Medications Generic Name Dose Route Start Last Admin Trade Name Freq PRN Reason Stop Dose Admin Enoxaparin Sodium 40 mg 11/06/17 10:00 Lovenox SC DAILY [facility] Home Med 50 mg 11/06/17 10:00 Hydroxyzine Pamoate [Vistaril] PO DAILY [facility] Home Med 1 tab 11/06/17 10:00 [place] Carbonate [[place] Carbonate] PO TID [facility] Ketorolac Tromethamine 10 mg 11/05/17 20:38 11/06/17 00:53 Toradol PO 10 mg Q6 PRN Administration Pain, moderate (4-7) Lamotrigine 100 mg 11/06/17 10:00 Lamictal PO DAILY [facility] Pantoprazole Sodium 40 mg 11/06/17 10:00 Protonix Ec Tab PO DAILY [facility] Risperidone 0.5 mg 11/06/17 10:00 Risperdal Tab PO BID PRETTY Past Psychiatric History - Past Psychiatric History Previous Treatment History: Inpatient Pertinent Medical Hx (Current Medical&Sleep Prob, Allergies): Allergies Allergy/AdvReac Type Severity Reaction Status Date / Time morphine Allergy Intermediate Verified 11/05/17 17:24 iodine Allergy Verified 11/05/17 17:24 codeine AdvReac Verified 11/05/17 17:24 SEAFOOD AdvReac Uncoded 06/10/17 16:39 ALPRAZolam [Xanax] 1 mg PO TID 01/31/18 [place] Carbonate 1 tab PO TID 06/21/17 hydrOXYzine Pamoate [Vistaril] 50 mg PO DAILY 06/21/17 lamoTRIgine [LaMICtal] 100 mg PO DAILY 06/21/17 Pantoprazole [Protonix EC Tab] 20 mg PO DAILY 11/05/17 Risperidone [Risperdal] 0.5 mg PO BID 11/05/17 Review of Systems - Review of Systems All systems: reviewed and no additional remarkable complaints except - Psychiatric Psychiatric: Anxiety, Auditory Hallucinations, Hallucinations, Irritability, Mood Swings, Paranoia, Suicidal Ideation Mental Status Examination - Personal Presentation Personal Presentation: Looks stated age - Affect Affect: Broad - Motor Activity Motor Activity: Calm - Reliability in Providing Information Reliability in Providing Information: Poor, due to alteration in thoughts, Poor , due to altered mood - Speech Speech: Disorganized - Mood Mood: Depressed, Anxious - Formal Thought Process Formal Thought Process: Hallucinations, Delusions, Paranoia, Loosening of associations, Flight of ideas - Hallucinations/Delusions Hallucinations: Visual, Auditory Delusions: Persecution - Obsessions/Compulsions Obsessions: No Compulsions: No - Cognitive Functions Orientation: Person, Place, Situation, Time Sensorium: Alert Attention/Concentration: Attentive Abstract Thinking: [place] Estimate of Intelligence: Below average Judgement: Imparied, as evidence by: Poor judgement, Imparied, as evidence by: Lack of insight into illness - Risk Risk: Suicidal, Diminished functioning - Limitations Limitations: Living alone DSM 5 DX - DSM 5 DSM 5 Diagnosis: Schizoaffective disorder bipolar type - Recommended/Plan of Treatment Treatment Recommendations and Plan of Treatment: Schizoaffective disorder bipolar type Psychoeducation Supportive therapy, group therapy, individual therapy Risperdal I am PO BID Trazodone 100 mg by mouth daily at bedtime Lamictal 100 mg Po Daily [place] 300 mg PO TID Patient to admit at 5 E, after medical clearance. - Smoking Cessation Smoking Cessation Initiated: No
[2017-11-06] MEDS ORDERED: LITHIUM CARBONATE PO SCH ×2 (10:00→14:00)
[2017-11-06] MEDS ORDERED: Pantoprazole 20 mg EC Tab PO SCH (10:00)
[2017-11-06] MEDS ORDERED: HYDROXYZINE PAMOATE 50 MG PO SCH (10:00)
[2017-11-06] MEDS: Pantoprazole 40 mg EC Tab PO SCH (10:33)
[2017-11-06] MEDS: Enoxaparin 40 mg Syringe SC SCH (10:33)
--- NOTE | 2017-11-06 16:38 | CARD ---
APPROVED REPORT EKG Measurement Heart [id number] <Conclusion> Sinus tachycardia Possible Inferior infarct, age undetermined Cannot rule out Anterior infarct, age undetermined Abnormal ECG
--- NOTE | 2017-11-06 23:46 | CP.PCM.HP ---
History of Present Illness - History of Present Illness History of Present Illness: 37 year old female patient with past medical history significant for Bipolar disorder, Anxiety and depression presented to the ER 11/05/17 after a suicide attempt. She states that she has been feeling down for the past couple of days and been thinking of harming herself. She further states that she was having auditory hallucinations telling her to harm herself. She states that she has had to deal with many issues over the past couple of years. She admits to having back pain. She denies chest pain, dyspnea , headaches at this time. Past Patient History - Infectious Disease Hx of Infectious Diseases: None - Past Medical History & Family History Past Medical History?: Yes - Past Social History Smoking Status: Never Smoked - CARDIAC Hx Hypertension: Yes - PULMONARY Hx Asthma: No - NEUROLOGICAL Hx Neurological Disorder: No - HEENT Hx HEENT Problems: No - RENAL Hx Chronic Kidney Disease: No - ENDOCRINE/METABOLIC Hx Endocrine Disorders: No - HEMATOLOGICAL/ONCOLOGICAL Hx Blood Disorders: No - INTEGUMENTARY Hx Dermatological Problems: No - MUSCULOSKELETAL/RHEUMATOLOGICAL Hx Falls: No - GASTROINTESTINAL Hx Gastrointestinal Disorders: No - GENITOURINARY/GYNECOLOGICAL Hx Genitourinary Disorders: No - PSYCHIATRIC Hx Anxiety: Yes Hx Bipolar Disorder: Yes Hx Depression: Yes Hx Schizophrenia: Yes Hx Substance Use: No - SURGICAL HISTORY Hx Cholecystectomy: Yes - ANESTHESIA Hx Anesthesia: Yes Hx Anesthesia Reactions: No Hx Malignant Hyperthermia: No Meds Allergies/Adverse Reactions: Allergies Allergy/AdvReac Type Severity Reaction Status Date / Time morphine Allergy Intermediate Verified 11/05/17 17:24 iodine Allergy Verified 11/05/17 17:24 codeine AdvReac Verified 11/05/17 17:24 SEAFOOD AdvReac Uncoded 06/10/17 16:39 Results - Vital Signs Recent Vital Signs: Last Vital Signs Temp 98.4 F 11/06/17 15:00 Pulse 80 11/06/17 15:00 Resp 20 11/06/17 15:00 BP 109/70 11/06/17 15:00 Pulse Ox 97 11/06/17 15:00 - Labs Result Diagrams: 11/06/17 07:28 11/06/17 07:28 Labs: Laboratory Results - last 24 hr 11/06/17 11/06/17 11/06/17 07:28 07:28 12:15 WBC 7.4 RBC 4.59 Hgb 10.8 L Hct 33.2 L MCV 72.3 L MCH 23.6 L MCHC 32.7 L RDW 17.6 H Plt Count 428 H MPV 8.0 Neut % (Auto) 66.4 Lymph % (Auto) 22.7 [place] % (Auto) 8.0 Eos % (Auto) 2.1 Baso % (Auto) 0.8 Neut # (Auto) 4.9 Lymph # (Auto) 1.7 [place] # (Auto) 0.6 Eos # (Auto) 0.2 Baso # (Auto) 0.1 Sodium 142 Potassium 4.2 Chloride 105 Carbon Dioxide 22 Anion Gap 19 BUN 16 Creatinine 0.7 Est GFR ( Amer) > 60 Est GFR (Non-Af Amer) > 60 POC Glucose (mg/dL) 111 H Random Glucose 80 Calcium 8.6 Total Bilirubin 0.7 AST 22 ALT 19 Alkaline Phosphatase 62 Total Protein 6.7 Albumin 4.1 Globulin 2.6 Albumin/Globulin Ratio 1.5 Assessment & Plan - Assessment and Plan (Free Text) Plan: Patient is much better We will continue to monitor for another 24 hours patient is unable to sleep also seen and discussed with the staff Assessment and Plan (1) Benzodiazepine overdose Assessment & Plan: AAOx3, Stable labs and vitals Consult to Psych- F/U recommendations Toxicology screen positive findings (Acetaminophen level and lithium level decreased) Will monitor at least 24 hours before considerations for transfer. Pending stable clinical presentation- will transfer to psych. Patient would benefit from outpatient care management as well. Status: Acute (2) Suicidal ideations Assessment & Plan: Counseled extensively Management per psych Status: Acute (3) Bipolar disorder Assessment & Plan: On Lamictal and Risperdal Status: Chronic (4) Anxiety and depression Assessment & Plan: Management per Psych Status: Chronic (5) Prophylactic measure Assessment & Plan: On Lovenox and Protonix Status: Acute
[2017-11-07 08:23] LABS: ALB/GLOB RATIO 1.3 (1.0-2.1); ALBUMIN 3.6 g/dL (3.5-5.0); ALT/SGPT 24 U/L (9-52); AST/SGOT 21 U/L (14-36); BLOOD UREA NITROGEN 11 mg/dL (7-17); CALCIUM 8.6 mg/dl (8.6-10.4); GFR AFRICAN-AMERICAN > 60; GFR NON-AFRICAN AMERICAN > 60
[2017-11-07 08:30] LABS: BASO % 0.6 % (0.0-2.0); EOS # 0.3 K/uL (0.0-0.7); EOS % 4.4 % (0.0-4.0); HEMOGLOBIN 10.6 g/dL (11.0-16.0); LYMPH # 1.7 K/uL (1.0-4.3); LYMPH % 23.7 % (20.0-40.0); MEAN CELL VOLUME 72.6 fL (81.0-99.0); MEAN CORPUSCULAR HEMOGLOBIN 22.8 pg (27.0-31.0); MEAN CORPUSCULAR HGB CONC 31.3 g/dL (33.0-37.0); MEAN PLATELET VOLUME 8.1 fL (7.2-11.7); MONO # 0.6 K/uL (0.0-0.8); NEUT # 4.5 K/uL (1.8-7.0); NEUT % 63.3 % (50.0-75.0); RBC 4.65 Mil/uL (3.80-5.20); RED CELL DISTRIBUTION WIDTH 17.4 % (11.5-14.5); WHITE BLOOD COUNT 7.2 K/uL (4.8-10.8)
--- NOTE | 2017-11-07 09:16 | CP.PCM.PN ---
Subjective - Date & Time of Evaluation Date of Evaluation: 11/07/17 Time of Evaluation: 09:06 - Subjective Subjective: PGY 3 Progress Note- Dr. Ndiaye's service Patient seen and examined in no acute distress. No significant events overnight per nursing. Patient is refusing to take some of her medications. Objective - Vital Signs/Intake and Output Vital Signs (last 24 hours): Temp Pulse Resp BP Pulse Ox 97.9 F 80 20 127/76 100 11/07/17 07:45 11/07/17 07:45 11/07/17 07:45 11/07/17 07:45 11/07/17 07:45 - Medications Medications: Current Medications Enoxaparin Sodium (Lovenox) 40 mg SC DAILY [facility] Last Admin: 11/06/17 10:33 Dose: 40 mg Hydroxyzine HCl (Atarax) 50 mg PO DAILY [facility] Ketorolac Tromethamine (Toradol) 10 mg PO Q6 PRN PRN Reason: Pain, moderate (4-7) Last Admin: 11/06/17 17:09 Dose: 10 mg Lamotrigine (Lamictal) 100 mg PO DAILY [facility] [place] Carbonate ([place] Carbonate 300mg) 300 mg PO TID [facility] Last Admin: 11/06/17 21:54 Dose: 300 mg Pantoprazole Sodium (Protonix Ec Tab) 40 mg PO DAILY [facility] Last Admin: 11/06/17 10:33 Dose: 40 mg Risperidone (Risperdal Tab) 1 mg PO BID [facility] Last Admin: 11/06/17 17:08 Dose: Not Given Trazodone HCl (Desyrel) 100 mg PO [facility] Last Admin: 11/06/17 21:48 Dose: 100 mg - Labs Labs: 11/07/17 07:52 11/07/17 07:52 - Constitutional Appears: Non-toxic, No Acute Distress - Head Exam Head Exam: ATRAUMATIC, NORMAL INSPECTION - ENT Exam ENT Exam: Mucous Membranes Moist - Neck Exam Neck Exam: Full ROM - Extremities Exam Extremities Exam: Full ROM - Back Exam Back Exam: Full ROM - Neurological Exam Neurological Exam: Alert, Awake - Psychiatric Exam Psychiatric exam: Depressed - Skin Skin Exam: Normal Color, Warm Assessment and Plan (1) Benzodiazepine overdose Status: Acute (2) Suicidal ideations Status: Acute (3) Bipolar disorder Status: Chronic (4) Anxiety and depression Status: Chronic (5) Prophylactic measure Status: Acute - Assessment and Plan (Free Text) Assessment: (1) Benzodiazepine overdose Assessment & Plan: AAOx3, Stable labs and vitals Consult to Psych- F/U recommendations Toxicology screen positive findings. Considerations for transfer to psych today. Patient would benefit from outpatient care management as well. Status: Acute (2) Suicidal ideations Assessment & Plan: Counseled extensively Management per psych Will transfer today. Status: Acute (3) Bipolar disorder Assessment & Plan: On Lamictal and Risperdal Patient currently refusing medications Status: Chronic (4) Anxiety and depression Assessment & Plan: Management per Psych Status: Chronic (5) Prophylactic measure Assessment & Plan: On Lovenox and Protonix Status: Acute Discussed with attending. All orders and planning per attending physician.
[2017-11-07] MEDS: Pantoprazole 40 mg EC Tab PO SCH (11:38)
[2017-11-07] MEDS: Enoxaparin 40 mg Syringe SC SCH (11:39)
--- NOTE | 2017-11-07 15:01 | PCM.PYCHPN ---
Psychiatric Progress Note - Psychiatric Progress Note Patient seen today, length of contact: 15 min Patient Chief Complaint: I m feeling depressed.' Problems Identified/Issues Discussed: Patient seen and evaluated, chart reviewed and discussed with the nurse. Pt still reports depressed mood and reports feelings of hopelessness and helplessness. Patient remained disorganized and internally preoccupied. Patient still reports of hearing voices and still appears paranoid and delusional. She is refusing medications, pt was educated. Supportive therapy and psychoeducation were given. Medication Change: Yes (start prolixin) Medical Record Reviewed: Yes Mental Status Examination - Cognitive Function Orientation: Person, Place, Situation, Time Memory: Intact Attention: Poor Concentration: Poor Association: Loose Fund of Knowledge: Poor - Mood Mood: Depressed, Anxious - Affect Affect: Broad - Speech Speech: Soft - Formal Thought Process Formal Thought Process: Hallucinations, Delusions, Paranoia, Loosening of associations, Flight of ideas - Suicidal Ideation Suicidal Ideation: No - Homicidal Ideation Homicidal Ideation: No Goal/Treatment Plan - Goal/Treatment Plan Need for Continued Stay: Severe depression anxiety, Severe functional impairment Progress Toward Problem(s) and Goals/Treatment Plan: Schizoaffective disorder bipolar type Psychoeducation Supportive therapy, group therapy, individual therapy DC Risperdal I mg PO BID Trazodone 100 mg by mouth daily at bedtime Lamictal 100 mg Po Daily [place] 300 mg PO TID Start Prolixin 5 mg by mouth BID Patient to admit at 5 E, after medical clearance.
--- NOTE | 2017-11-07 17:16 | CP.PCM.PN ---
Subjective - Date & Time of Evaluation Date of Evaluation: 11/07/17 Time of Evaluation: 10:20 - Subjective Subjective: clinically same Objective - Vital Signs/Intake and Output Vital Signs (last 24 hours): Temp Pulse Resp BP Pulse Ox 97.9 F 84 20 127/76 100 11/07/17 07:45 11/07/17 12:07 11/07/17 07:45 11/07/17 07:45 11/07/17 07:45 Intake and Output: 11/07/17 11/07/17 06:59 18:59 Intake Total 375 Balance 375 - Medications Medications: Current Medications Benztropine Mesylate (Cogentin) 1 mg PO BID [facility] Enoxaparin Sodium (Lovenox) 40 mg SC DAILY [facility] Last Admin: 11/07/17 11:39 Dose: Not Given Fluphenazine HCl (Prolixin) 5 mg PO BID [facility] Hydroxyzine HCl (Atarax) 50 mg PO DAILY [facility] Last Admin: 11/07/17 11:38 Dose: Not Given Ketorolac Tromethamine (Toradol) 10 mg PO Q6 PRN PRN Reason: Pain, moderate (4-7) Last Admin: 11/07/17 11:38 Dose: 10 mg Lamotrigine (Lamictal) 100 mg PO DAILY [facility] Last Admin: 11/07/17 11:44 Dose: Not Given [place] Carbonate ([place] Carbonate 300mg) 300 mg PO TID [facility] Last Admin: 11/07/17 13:25 Dose: 300 mg Pantoprazole Sodium (Protonix Ec Tab) 40 mg PO DAILY [facility] Last Admin: 11/07/17 11:38 Dose: 40 mg Trazodone HCl (Desyrel) 100 mg PO [facility] Last Admin: 11/06/17 21:48 Dose: 100 mg - Labs Labs: 11/07/17 07:52 11/07/17 07:52 - Constitutional Appears: Well - Head Exam Head Exam: ATRAUMATIC, NORMAL INSPECTION, NORMOCEPHALIC - Eye Exam Eye Exam: EOMI, Normal appearance, PERRL Pupil Exam: NORMAL ACCOMODATION, PERRL - ENT Exam ENT Exam: Mucous Membranes Moist, Normal Exam - Neck Exam Neck Exam: Full ROM, Normal Inspection. absent: Lymphadenopathy - Respiratory Exam Respiratory Exam: Decreased Breath Sounds - Cardiovascular Exam Cardiovascular Exam: REGULAR RHYTHM, +S1, +S2 - GI/Abdominal Exam GI & Abdominal Exam: Soft, Diminished Bowel Sounds - Rectal Exam Rectal Exam: Deferred
[2017-11-07 17:33] VITALS: O2SAT 99
--- NOTE | 2017-11-07 18:56 | PCM.BM ---
<Jacobo Box - Last Filed: 11/08/17 01:09> Treatment Plan Problems - Problems identified on initial assessmt depression Date Initiated: 11/07/17 Time Initiated: 19:30 Status: Active Treatment assets and liabiliti Patient Assests: cooperative, negotiates basic needs, cognitively intact Patient Liabilities: substance abuse, medical problems - Milieu Protocol Maintain good personal hygiene: daily Encourage regular showers, daily Remind patient to perform daily oral care, daily Assist patient to perform ADL's Maintain personal safety: every shift Educate patient to report safety concerns to staff, every shift Monitor environment for contraband/sharps Medication safety: Monitor for expected outcome, potential side effects: every shift, Assess barriers to learning: every shift, Assess readiness for medication education: every shift <Bar Flaherty - Last Filed: 11/08/17 10:54> - Diagnosis (1) Schizoaffective disorder Status: Acute Interventions: 11/08/17 10:55 * Assess/adjust medications daily and /or as needed * See patient on an individual basis 7x/week to assess status of hallucinations * Discuss risks, benefits, side effects and alternatives of medications * <Manjula Gann - Last Filed: 11/08/17 11:39> Family Contact Family involvement: Famliy/SO not involved - Goals for Treatment Patient goals for treatment: "I want to go home." Discharge/Continuing Care - Education Needs Education Needs: Patient Medication, Patient Coping Skills - Discharge Discharge Criteria: Tolerates medication w/o severe side effects, Free of Suicidal thoughts, Reduction of target symptoms Discharge to:: Home - Treatment Team Participation Discussed with Family/SO: No Was Patient/Family/SO present at Treatment Team Meeting: Yes
[2017-11-08 06:14] VITALS: RESP 18
[2017-11-08] MEDS: Pantoprazole 40 mg EC Tab PO SCH (09:50)
--- NOTE | 2017-11-08 10:51 | PCM.PYCHPN ---
Psychiatric Progress Note - Psychiatric Progress Note Patient seen today, length of contact: 15 min Patient Chief Complaint: I want to leave.' Problems Identified/Issues Discussed: Patient seen and evaluated, chart reviewed and discussed with the nurse. Pt reports depressed mood and reports feelings of hopelessness and helplessness. Patient remained disorganized and internally preoccupied. Patient still reports of hearing voices and still appears paranoid and delusional. She is refusing medications, pt was educated. Supportive therapy and psychoeducation were given. Medication Change: Yes (start prolixin) Medical Record Reviewed: Yes Mental Status Examination - Cognitive Function Orientation: Person, Place, Situation, Time Memory: Intact Attention: WNL Concentration: WNL Association: Loose Fund of Knowledge: Poor - Mood Mood: Depressed, Anxious - Affect Affect: Broad - Speech Speech: Soft - Formal Thought Process Formal Thought Process: Loosening of associations, Flight of ideas - Suicidal Ideation Suicidal Ideation: No - Homicidal Ideation Homicidal Ideation: No Goal/Treatment Plan - Goal/Treatment Plan Need for Continued Stay: Severe depression anxiety, Severe functional impairment Progress Toward Problem(s) and Goals/Treatment Plan: Schizoaffective disorder bipolar type Psychoeducation Supportive therapy, group therapy, individual therapy Trazodone 100 mg by mouth daily at bedtime Lamictal 100 mg Po Daily Increase [place] 450 mg PO TID Increase Prolixin 10 mg by mouth BID Benztropine 1 mg PO BID
[2017-11-08] MEDS: Lithium Carbonate ER Tab 450 MG PO SCH ×2 (13:39→17:25)
[2017-11-09 06:33] VITALS: BP 97/67; PULSE 87; TEMP 97.6
[2017-11-09] MEDS: Lithium Carbonate ER Tab 450 MG PO SCH (10:00)
[2017-11-09] MEDS: Pantoprazole 40 mg EC Tab PO SCH (10:00)
--- NOTE | 2017-11-09 10:36 | PCM.PYCHDC ---
Mental Status Examination - Mental Status Examination Orientation: Person, Place, Situation, Time Memory: Intact Mood: Neutral Affect: Constricted Speech: Soft Attention: WNL Concentration: WNL Association: WNL Fund of Knowledge: WNL Formal Thought Process: No Impairment Description of patient's judgement and insight: good, fair Psychotic Thoughts and Behaviors: denies any AVH Suicidal Ideation: No Current Homicidal Ideation?: No Discharge Summary - Discharge Note Reason for Hospitalization: Patient is 37 y/o HF, who was escorted to the hospital after a suicidal attempt. Pt remains disorganized, and internally preoccupied throughout the interview. She appeared very delusional and paranoid. She reports a long history of schizoaffective disorder. She has h/o multiple inpt admissions, last discharged almost 6 years ago, when she attempted suicide by OD. She was admitted on the medical floor as she attempted suicide again by OD on pills. Today patient was consulted because of h/o schizoaffective disorder. Patient remained disorganized, paranoid, depressed and delusional throughout the interview. She reports AH telling to killing herself, and VH seeing demons and devils. She also reports depressed mood and feeling of hopelessness and helplessness. Consultations:: List each consultation separately and include: 1. Reason for request. 2. Findings. 3. Follow-up Summary of Hospital Course include:: 1. Description of specific treatment plan utilized for patients during their course of treatmen. 2. Summarize the time- course for resolution of acute symptoms and/or regressed behaviors. 3. Describe issues identified and worked on during hospitalization. 4. Describe medication utilized. 5. Describe medical problems identified and treated. 6. Reassessment of suicide risk Summary of Hospital Course: Patient is 37 y/o HF, who was escorted to the hospital after a suicidal attempt. Pt remains disorganized, and internally preoccupied throughout the interview. She appeared very delusional and paranoid. She reports a long history of schizoaffective disorder. She has h/o multiple inpt admissions, last discharged almost 6 years ago, when she attempted suicide by OD. She was admitted on the medical floor as she attempted suicide again by OD on pills. Today patient was consulted because of h/o schizoaffective disorder. Patient remained disorganized, paranoid, depressed and delusional throughout the interview. She reports AH telling to killing herself, and VH seeing demons and devils. She also reports depressed mood and feeling of hopelessness and helplessness. - Diagnosis (1) Schizoaffective disorder Current Visit: Yes Status: Acute - Final Diagnosis (DSM 5) Condition upon Discharge: GOOD DSM 5: Schizoaffective disorder bipolar type Disposition: HOME/ ROUTINE Follow-up Treatment Plan: Schizoaffective disorder bipolar type Psychoeducation Supportive therapy, group therapy, individual therapy Trazodone 100 mg by mouth daily at bedtime Lamictal 100 mg Po Daily Increase [place] 450 mg PO TID Increase Prolixin 10 mg by mouth BID Benztropine 1 mg PO BID Prescriptions/Medication Reconciliation: Benztropine [Cogentin] 1 mg PO BID #60 tab fluPHENAZine [Prolixin] 10 mg PO BID #60 tab lamoTRIgine [Lamictal] 100 mg PO DAILY #30 tab [place] Carbonate ER Tab [[place] Carbonate] 450 mg PO TID #90 tab traZODone [Desyrel] 100 mg PO HS #30 tab
== END 2017-11-09 12:30 | disposition home or self-care (01) | DRG 430 ==
LOC: C.ER 17:21 → C.9E 18:46 → C.6T 20:38 → C.5E 11-07 16:23
PROVIDERS: ADMIT Psychiatry & Neurology Psychiatry; ATTEND Psychiatry & Neurology Psychiatry
PROC: GZ3ZZZZ Medication Management (ICD-10-PCS; principal; 2017-11-06)
PROC: GZHZZZZ Group Psychotherapy (ICD-10-PCS; 2017-11-06)
PROC: GZ56ZZZ Individual Psychotherapy, Supportive (ICD-10-PCS; 2017-11-06)
DX: F25.0 Schizoaffective disorder, bipolar type (principal); T42.4X2A Poisoning by benzodiazepines, intentional self-harm, initial encounter; F41.9 Anxiety disorder, unspecified; I10 Essential (primary) hypertension; M19.90 Unspecified osteoarthritis, unspecified site; Z90.49 Acquired absence of other specified parts of digestive tract; Z90.710 Acquired absence of both cervix and uterus; Z91.5 Personal history of self-harm; Z98.84 Bariatric surgery status

== ENCOUNTER 2017-11-16 13:43 | Emergency (ER) | payer MEDICAID ==
[2017-11-16 13:44] VITALS: BMI 41.4
[2017-11-16 14:27] VITALS: O2SAT 99
[2017-11-16] MEDS ORDERED: Bacitracin 500 Units/gm Oint Foilpak UD TOP ONE (14:59)
[2017-11-16] MEDS ORDERED: Bacitracin 500 Units/gm Oint Foilpak UD ONE (15:10)
--- NOTE | 2017-11-16 15:28 | C.PDOC ---
History Of Present Illness 37 y/o female presents to the ER for evaluation of an abrasion to the right knee sustained when she left the chiropractor's office, tripped and tried to catch her fall, still falling on pavement injuring her right knee. Patient sustained abrasion to knee. She now reports her back is hurting again from trying to catch her fall. Denies head injury, LOC, numbness or weakness or incontinence. Time Seen by Provider: 11/16/17 14:42 Chief Complaint (Nursing): Lower Extremity Problem/Injury History Per: Patient History/Exam Limitations: no limitations Onset/Duration Of Symptoms: Hrs Current Symptoms Are (Timing): Still Present Severity: Moderate - Knee Description Of Injury: Fell (right knee) Past Medical History Reviewed: Historical Data, Nursing Documentation, Vital Signs Vital Signs: Last Vital Signs Temp 98.2 F 11/16/17 15:32 Pulse 84 11/16/17 15:32 Resp 18 11/16/17 15:32 BP 132/83 11/16/17 15:32 Pulse Ox 99 11/16/17 15:43 - Medical History PMH: Anxiety, Arthritis, Back Problems, Bipolar Disorder, Depression, HTN, Schizophrenia Denies: Asthma, Chronic Kidney Disease Surgical History: Back Surgery, Cholecystectomy - [facility] Procedures GROUP PSYCHOTHERAPY (11/05/17) INDIVIDUAL PSYCHOTHERAPY, SUPPORTIVE (11/05/17) MEDICATION MANAGEMENT (11/05/17) Family History: States: No Known Family Hx - Social History Hx Alcohol Use: No Hx Substance Use: No - Immunization History Hx Tetanus Toxoid Vaccination: No Hx Influenza Vaccination: No Hx Pneumococcal Vaccination: No Review Of Systems Except As Marked, All Systems Reviewed And Found Negative. Genitourinary: Negative for: Incontinence Musculoskeletal: Positive for: Back Pain Skin: Positive for: Other (abrasion to right knee) Neurological: Negative for: Weakness, Numbness Physical Exam - Physical Exam Appears: Non-toxic, No Acute Distress Skin: Normal Color, Warm, Dry, Other (superficial abrasion to right knee) Head: Atraumatic, Normacephalic Eye(s): bilateral: Normal Inspection Nose: Normal Oral Mucosa: Moist Neck: Supple Chest: Symmetrical Cardiovascular: Rhythm Regular Respiratory: Normal Breath Sounds, No Rales, No Rhonchi, No Wheezing Back: Paraspinal Tenderness (paralumbar tenderness) Extremity: Normal ROM Neurological/Psych: Oriented x3, Normal Speech ED Course And Treatment O2 Sat by Pulse Oximetry: 99 (RA) Pulse Ox Interpretation: Normal Medical Decision Making Medical Decision Making: Impression: fall on pavement, knee abrasion, back pain Patient refused xrays stating she knows her knee is not broken and just wants pain meds. Plan: * Bacitracin ea * Toradol IM Knee abrasion cleansed and bacitracin applied. Toradol given for pain. On re- eval patient reports pain improved and asking for Rx. Patient stable for discharge Disposition Counseled Patient/Family Regarding: Diagnosis, Need For Followup, Rx Given - Disposition Referrals: Rosalinda Gee MD [Medical Doctor] - Disposition: HOME/ ROUTINE Disposition Time: 15:26 Condition: STABLE Additional Instructions: Please apply ice to area 15 minutes three times a day. Keep area clean and dry. May wash gently with soap and water. Change dressing 1-2 times daily. Take Motrin as needed for pain every 6 hours, with food to not upset stomach. Follow up with your doctor Prescriptions: Ketorolac Tromethamine [Toradol] 10 mg PO Q8 PRN #9 tab PRN Reason: Pain, Moderate (4-7) Instructions: Skin Abrasions (DC) Print Language: WELSH - POA Present On Arrival: None - Clinical Impression Clinical Impression: Abrasion of knee, Back pain - PA / CODE MACHINE OPERATOR / Resident Statement MD/DO has reviewed & agrees with the documentation as recorded. - Scribe Statement The provider has reviewed the documentation as recorded by the Flakita Fatima Provider Attestation All medical record entries made by the Keenanibe were at my direction and personally dictated by me. I have reviewed the chart and agree that the record accurately reflects my personal performance of the history, physical exam, medical decision making, and the department course for this patient. I have also personally directed, reviewed, and agree with the discharge instructions and disposition.
[2017-11-16 15:33] VITALS: BP 132/83; PULSE 84; RESP 18; TEMP 98.2
== END 2017-11-16 15:33 | disposition home or self-care (01) ==
LOC: C.ER 13:43
DX: S80.211A Abrasion, right knee, initial encounter (principal); W01.0XXA Fall on same level from slipping, tripping and stumbling without subsequent striking against object, initial encounter; Y92.480 Sidewalk as the place of occurrence of the external cause; I10 Essential (primary) hypertension; F20.9 Schizophrenia, unspecified
CPT/HCPCS: 96372; 99284; J1885

== ENCOUNTER 2017-11-17 02:14 | Emergency (ER) | payer MEDICAID ==
[2017-11-17 02:14] VITALS: BMI 41.4
--- NOTE | 2017-11-17 03:04 | C.PDOC ---
History Of Present Illness 37 y/o female return to ED for evaluation of diffuse lower back pain, Right knee pain gradually developed since early today after sustained mechanical fall. Pt reports, when she left the chiropractor's office early today, she tripped and tried to catch her fall, still falling on pavement injuring her right knee. Patient sustained abrasion to knee. Pt admits, was seen early today , refused though imaging " I just need stronger pain medication, I known my bones are not broken". Otherwise, pt denies head injury, LOC, syncope, headache , dizziness, neck pain, CP, SOB, dyspnea, abd. pain, N/V, saddle anesthesia, incontinence, denies deformity, numbness or weakness to B/L LEs. Ambulate to Ed for evaluation with stable gait, not in any apparent distress. Time Seen by Provider: 11/17/17 02:29 Chief Complaint (Nursing): Back Pain History Per: Patient Past Medical History Reviewed: Historical Data, Nursing Documentation, Vital Signs Vital Signs: Last Vital Signs Temp 98.1 F 11/17/17 03:53 Pulse 82 11/17/17 03:53 Resp 16 11/17/17 03:53 BP 127/81 11/17/17 03:53 Pulse Ox 99 11/17/17 03:53 - Medical History PMH: Anxiety, Arthritis, Back Problems, Bipolar Disorder, Depression, HTN, Schizophrenia Denies: Asthma, Chronic Kidney Disease Surgical History: Back Surgery, Cholecystectomy - [facility] Procedures GROUP PSYCHOTHERAPY (11/05/17) INDIVIDUAL PSYCHOTHERAPY, SUPPORTIVE (11/05/17) MEDICATION MANAGEMENT (11/05/17) Family History: States: Unknown Family Hx - Social History Hx Alcohol Use: No Hx Substance Use: No - Immunization History Hx Tetanus Toxoid Vaccination: No Hx Influenza Vaccination: No Hx Pneumococcal Vaccination: No Review Of Systems Except As Marked, All Systems Reviewed And Found Negative. Eyes: Negative for: Vision Change ENT: Negative for: Ear Discharge, Nose Discharge Cardiovascular: Negative for: Chest Pain Respiratory: Negative for: Shortness of Breath Gastrointestinal: Negative for: Nausea, Vomiting Genitourinary: Negative for: Incontinence Musculoskeletal: Positive for: Back Pain Skin: Positive for: Lesions (abrasion to Right knee) Neurological: Negative for: Weakness, Numbness, Altered Mental Status, Headache , Dizziness Physical Exam - Physical Exam Appears: Well, Non-toxic, No Acute Distress Skin: Normal Color, Warm, Dry, No Rash Head: Atraumatic, Normacephalic Eye(s): bilateral: PERRL Nose: No Deformity, No Tenderness Oral Mucosa: Moist, No Drooling, No Trismus Neck: Normal ROM, Trachea Midline, No Midline Cervical Tenderness, No Paracervical Tenderness, No Step Off Deformity, Supple Chest: Symmetrical, No Deformity, No Tenderness Back: No Vertebral Tenderness, No Muscle Spasm, Paraspinal Tenderness (diffuse lumbar) Extremity: Normal ROM (Right knee), Tenderness (mild over patella with superificial abrasion), No Calf Tenderness (B/L), No Deformity, No Swelling Neurological/Psych: Oriented x3, Normal Speech, Normal Motor, Normal Sensation, Normal Reflexes ED Course And Treatment Progress Note: On re-evaluation, pt is afebrile, hemodynamicaly stable. AMbulatory in ED with stable gait. Non-toxic, tolearte Po well in ED. Head: AT /NC. neck: Supple, (-) midline tenderness. RLE: mild tendernes sover anterior aspect Right knee, no deformity. FAROM, no neurovascular deficits. Neuorlogicaly intact. Pt has clinical findings c/w lumbar strain, Right knee contusion s/p mechanical fall. Pt avdised and ref. to F/u with PMD in 1-2 days for re-evaluation. return to ED if any worsening ro new changes. Disposition Counseled Patient/Family Regarding: Studies Performed, Diagnosis, Need For Followup, Rx Given - Disposition Referrals: [facility] [Outside] Disposition: HOME/ ROUTINE Disposition Time: 03:04 Condition: STABLE Additional Instructions: Avoid physical activity for 1 week Take pain medication as prescribed Follow up with PMD in 2-3 days for re-evaluation and further pain management return if any new changes. Prescriptions: Gabapentin [Neurontin] 300 mg PO BID #10 cap Methocarbamol [Robaxin] 500 mg PO TID #14 tab Instructions: Skin Abrasions, Lumbar Muscle Strain (DC), Knee Sprain (DC) Forms: [email or web address] (Croatian) - Clinical Impression Clinical Impression: Lumbar sprain, Knee contusion, Abrasion
[2017-11-17 03:54] VITALS: BP 127/81; PULSE 82; RESP 16; TEMP 98.1; O2SAT 99
== END 2017-11-17 04:11 | disposition home or self-care (01) ==
LOC: C.ER 02:14
DX: S33.5XXD Sprain of ligaments of lumbar spine, subsequent encounter (principal); S80.01XD Contusion of right knee, subsequent encounter; S80.211D Abrasion, right knee, subsequent encounter; W01.0XXD Fall on same level from slipping, tripping and stumbling without subsequent striking against object, subsequent encounter
CPT/HCPCS: 96372; 99283; J1885